=== PATIENT | female | born 1945 | race Caucasian/White ===

== ENCOUNTER → 2020-06-30 | Outpatient (CLI) | payer MEDICARE ==
[~2020-06-30] MED LIST: AMLO1TAB12 PO; ANAS1TAB PO; ASPI-496 PO; ESOM40CA PO; EZET1TAB35 PO; METF10002 PO; METO25TA35 PO; MONT10TA6 PO; NITR0.4T28 SL; PIOG30TA23 PO; TRIA1TAB3 PO
== END | disposition home or self-care (01) ==
LOC: CVU 12:58
PROVIDERS: ATTEND Internal Medicine Cardiovascular Disease
DX: I65.23 Occlusion and stenosis of bilateral carotid arteries (principal); I10 Essential (primary) hypertension; I48.0 Paroxysmal atrial fibrillation
CPT/HCPCS: 93880